=== PATIENT | female | born 1970 | race Caucasian/White ===

== ENCOUNTER 2019-06-14 11:22 | Outpatient (CLI) | payer OTHER ==
--- NOTE | 2019-06-14 16:01 | RAD ---
Exam: Right RIBS 2 views: HISTORY: Multiple chest wall contusions with pain when breathing Essentially nondisplaced fractures are noted involving the right fourth fifth sixth and seventh anter olateral ribs. No pneumothorax or pleural effusion. IMPRESSION: Multiple essentially nondisplaced right rib fractures without pneumothorax or pleural effusion.
== END 2019-06-14 11:23 | disposition home or self-care (01) ==
LOC: BICRAD 11:22
PROVIDERS: ATTEND Family Medicine
DX: T07.XXXA Unspecified multiple injuries, initial encounter (principal); S22.41XA Multiple fractures of ribs, right side, initial encounter for closed fracture

== ENCOUNTER 2019-07-14 08:37 | Outpatient (CLI) | payer OTHER ==
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
== END 2019-07-14 08:38 | disposition home or self-care (01) ==
LOC: RAD 08:37
PROVIDERS: ATTEND Surgery
DX: K95.09 Other complications of gastric band procedure (principal); K44.9 Diaphragmatic hernia without obstruction or gangrene
CPT/HCPCS: 74241